=== PATIENT | female | born 1995 | race Caucasian/White ===

== ENCOUNTER 2024-02-25 18:16 | Emergency (ER) | payer OTHER ==
[~2024-02-25] VITALS: Ht 170.2 cm; Wt 66.8 kg
[2024-02-25 18:17] VITALS: BP 129/79; TEMP 97.9; O2SAT 99
[2024-02-25 23:15] LABS: GC DNA AMPLIFICATION NEGATIVE (NEGATIVE)
[2024-02-25 23:24] LABS: Trichomonas vaginalis (AMP) NOT DETECTED (NEGATIVE)
[2024-02-26] MEDS ORDERED: BACT800T5 PO (01:12)
[2024-02-26] MEDS ORDERED: METR-265 PO (01:12)
[2024-02-26] MEDS: metroNIDAZOLE (FLAGYL) 500MG TABLET PO ONE (01:33)
[2024-02-26] MEDS: BACTRIM 160MG/800MG DS TAB PO ONE (01:33)
== END 2024-02-26 02:00 | disposition home or self-care (01) ==
LOC: M ED 18:16
DX: N76.1 Subacute and chronic vaginitis (principal); N39.0 Urinary tract infection, site not specified; Z88.8 Allergy status to other drugs, medicaments and biological substances

== ENCOUNTER 2024-07-23 03:30 | Emergency (ER) | payer OTHER ==
[~2024-07-23] VITALS: Ht 170.2 cm; Wt 69.5 kg
[~2024-07-23 03:30] MED LIST: BACT800T5 PO; METR-265 PO
[2024-07-23 03:32] VITALS: BP 122/86; TEMP 97.9; O2SAT 99
[2024-07-23] MEDS ORDERED: ESCITALOPRAM (03:35)
== END 2024-07-23 04:34 | disposition left against medical advice (07) ==
LOC: M ED 03:30
DX: Z53.21 Procedure and treatment not carried out due to patient leaving prior to being seen by health care provider (principal)

== ENCOUNTER → 2025-05-10 | Outpatient (REF) ==
[~2025-05-10] MED LIST changes: +ESCITALOPRAM; +LEXA1TAB PO; +PRAZ2CAP PO
== END ==
LOC: M EMP 15:27
PROVIDERS: ATTEND Family Medicine
DX: Z01.89 Encounter for other specified special examinations (principal)

== ENCOUNTER 2025-05-14 08:42 | Emergency (ER) | payer OTHER, SELFPAY ==
[~2025-05-14] VITALS: Ht 170.2 cm; Wt 79.0 kg
[~2025-05-14 08:42] MED LIST changes: -LEXA1TAB PO; -PRAZ2CAP PO
[2025-05-14] MEDS ORDERED: LEXA1TAB PO (08:56)
[2025-05-14] MEDS ORDERED: PRAZ2CAP PO (08:56)
[2025-05-14] MEDS ORDERED: BACT800T5 PO (09:18)
[2025-05-14] MEDS: BACTRIM 160MG/800MG DS TAB PO ONE (09:21)
[2025-05-14 10:02] VITALS: BP 118/63; TEMP 97.1; O2SAT 100
== END 2025-05-14 10:03 | disposition home or self-care (01) ==
LOC: M ED 08:42
DX: L03.012 Cellulitis of left finger (principal); F17.200 Nicotine dependence, unspecified, uncomplicated; Z88.8 Allergy status to other drugs, medicaments and biological substances; Z79.2 Long term (current) use of antibiotics; Z79.899 Other long term (current) drug therapy

== ENCOUNTER 2025-05-15 20:50 | Emergency (ER) | payer SELFPAY ==
[~2025-05-15] VITALS: Ht 170.2 cm; Wt 72.7 kg
[~2025-05-15 20:50] MED LIST changes: +LEXA1TAB PO; +PRAZ2CAP PO
[2025-05-16 04:45] VITALS: BP 110/74; TEMP 97.8; O2SAT 99
== END 2025-05-16 04:48 | disposition home or self-care (01) ==
LOC: M ED 20:50 → EEVIPCON 20:50 → M ED 05-16 04:48
DX: L03.012 Cellulitis of left finger (principal); F32.A Depression, unspecified; Z79.2 Long term (current) use of antibiotics; Z88.8 Allergy status to other drugs, medicaments and biological substances; Z79.899 Other long term (current) drug therapy